=== PATIENT | female | born 1975 | race African-American/Black ===

== ENCOUNTER 2021-05-28 18:39 | Emergency (ER) | payer SELFPAY ==
[~2021-05-28] VITALS: Ht 167.6 cm; Wt 68.1 kg
--- NOTE | 2021-05-28 19:48 | PHYS DOC ---
General Adult EDM: Chief Complaint: LACERATION/AVULSION HPI: HPI: Patient is a 45 year old female here with lacerations of her right pinky finger and right ring finger. She works at [employer], and she lacerated her fingers on a knife. This occurred shortly prior to arrival. She is unsure of tetanus status. She is right-hand dominant. She denies numbness tingling or weakness. She is able to move her fingers, but it is painful to do so. No other injury or trauma reported. No other complaints. No crush injury or blunt trauma reported. Review of Systems: Review of Systems: Constitutional: Denies fever Musculoskeletal: Denies joint pain or swelling. She does report pain at laceration sites on her right pinky finger and right ring finger. Integument: Lacerations of her right pinky and right ring finger, as detailed in HPI. No other lesions or wounds. Neurologic: Denies weakness or numbness. Psychiatric: Anxiety, only as it pertains to current injury Heart Score: C/O Chest Pain: No Risk Factors: Risk Factors: DM, Current or recent (<one month) smoker, HTN, HLP, family history of CAD, obesity. Risk Scores: Score 0 - 3: 2.5% MACE over next 6 weeks - Discharge Home Score 4 - 6: 20.3% MACE over next 6 weeks - Admit for Clinical Observation Score 7 - 10: 72.7% MACE over next 6 weeks - Early Invasive Strategies Physical Exam: PE: Constitutional: Well developed, well nourished, no acute distress, non-toxic appearance. [] HENT: Normocephalic, atraumatic Neck: Trachea is midline Cardiovascular: +2 radial pulse of the right upper extremity, she is warm and well-perfused appearing Lungs & Thorax: Respirations are nonlabored Skin: Linear, subcutaneous lacerations of the right ring fingerthe laceration overlies the soft tissue space between the MPC and PIP joint, located on the palmar surface of the finger, no laceration overlying the joint space. She has a linear, more superficial laceration of the right pinky finger, involving the soft tissue space between the PIP and DIP joints, though this laceration is not strictly palmar, but rather is located on the medial/ulnar, extending minimally onto the dorsal side of the finger Extremities: Lacerations of the right pinky and right ring fingers, as detailed above. She is able to fully flex and extend at her MCP joints, PIP joints, DIP joints. Sensation is grossly intact. No active or brisk bleeding. Neurologic: Alert and oriented X 3, normal motor function, normal sensory function, no focal deficits noted. [] Psychologic: He is anxious, she is cooperative [] EKG: EKG: [] Radiology/Procedures: Radiology/Procedures: [] Course & Med Decision Making: Course & Med Decision Making The patient is given p.o. [place] for pain. Tetanus is updated. She tolerated laceration repair well. Please see associated note for details of this. I di scussed home care instructions and wound care instructions. No current indication for imaging or further invasive exams at this time, based on current clinical presentation. She is comfortable with the plan for discharge home. She requested a note for work, so I provided this for her. Strict return precautions are given. She verbalizes understanding. Gloria Disclaimer: Gloria Disclaimer: This electronic medical record was generated, in whole or in part, using a voice recognition dictation system. Laceration Repair Lac Repair Indication: Lacerations of the right ring and right pinky finger Procedure: The patient was placed in the appropriate position, lying on the ED gurney. Local anesthesia was achieved utilizing 1% lidocaine. Adequate anesthesia was achieved. The area was then cleaned with Betadine and copiously irrigated with sterile normal saline. Small sharp debridement was required on the right ring finger laceration. The right ring finger laceration was closed utilizing 5-0 Ethilon simple interrupted sutures, a total of 4 utilized. The right pinky finger laceration repaired utilizing 5-0 Ethilon simple interrupted sutures, a total of 3 utilized. The wound area was then dressed with gauze and Kerlix dressing, placed by ks. Total repaired wound length: Right ring finger laceration approximately 2 cm. Right pinky finger laceration approximately 1.5 cm. The patient tolerated the procedure well. Complications: None. Departure Departure Impression: Primary Impression: Laceration of right ring finger Qualified Codes: S61.214A - Laceration without foreign body of right ring finger without damage to nail, initial encounter Additional Impression: Laceration of right little finger Qualified Codes: S61.216A - Laceration without foreign body of right little finger without damage to nail, initial encounter Disposition: 07 LEFT AWOL/ELOPED Condition: GOOD Referrals: NO PCP (PCP) Patient Instructions: Laceration Care, Adult Additional Instructions: Keep your wounds clean and dry. You may use plain soap and water for cleaning. Do not soak or submerge her hands for prolonged periods, do not use peroxide or alcohol. You may place a thin layer of Neosporin or Vaseline onto the wounds. Keep your wounds covered and dry, use gloves while at work. Return to the ER immediately for temperature 100.4 or higher, severe redness, severe swelling, red streaks going your fingers or hand. If you notice any yellow or green wound drainage please return to the ER. Use the pain medicine as needed/as directed for severe pain only. He may ice and elevate to help with swelling and pain as well. You may return to the ER in 7 to 10 days for suture removal. Scripts Hydrocodone Bit/Acetaminophen (HYDROCODONE-APAP 5-325 ) 1 Tab Tablet 1 TAB PO PRN Q6HRS PRN for PAIN, #12 TAB 0 Refills Prov: BRENDEN FULTON DO 05/28/21 BRENDEN FULTON DO May 28, 2021 19:48
[2021-05-28 19:55] VITALS: BP 126/79
[2021-05-28] MEDS ORDERED: HYDROcodone/APAP 5/325MG 1 TAB TABLET PO ONE (20:00)
[2021-05-28] MEDS ORDERED: LIDOCAINE 1% Multi-Dose 20 ML VIAL. INJ ONE (20:00)
[2021-05-28] MEDS ORDERED: TETANUS AND DIPHTHERIA TOX/PF 0.5 ML DISP.SYRIN. VAX IM ONE (20:00)
[2021-05-28] MEDS ORDERED: HYDR-2761 PO (20:44)
== END 2021-05-28 20:49 | disposition home or self-care (01) ==
LOC: ER 18:39
DX: S61.214A Laceration without foreign body of right ring finger without damage to nail, initial encounter (principal); S61.216A Laceration without foreign body of right little finger without damage to nail, initial encounter; W26.0XXA Contact with knife, initial encounter; Y93.89 Activity, other specified; Y92.69 Other specified industrial and construction area as the place of occurrence of the external cause; Y99.0 Civilian activity done for income or pay
CPT/HCPCS: 12002; 90471; 90714; 99284; J3490